=== PATIENT | female | born 1975 | race Caucasian/White ===

== ENCOUNTER → 2020-08-29 | Outpatient (CLI) | payer OTHER ==
[~2020-08-29] MED LIST: IBUPROFEN600 MG PO; NORFLEX 100 MG100 MG PO; Voltaren Gel 1 % TOP
[2020-08-30 11:15] LABS: RHEUMATOID ARTHRITIS FACTOR 11.1 IU/mL (0.0-13.9)
== END ==
LOC: LAB 09:20
PROVIDERS: Internal Medicine
DX: M25.50 Pain in unspecified joint (principal); M35.00 Sjogren syndrome, unspecified; D89.89 Other specified disorders involving the immune mechanism, not elsewhere classified; R76.8 Other specified abnormal immunological findings in serum; M79.671 Pain in right foot; M79.672 Pain in left foot; M79.641 Pain in right hand; M79.642 Pain in left hand
CPT/HCPCS: 36415; 73130; 73630; 83520; 85652; 86140; 86200; 86431

== ENCOUNTER → 2020-11-09 | Outpatient (CLI) | payer OTHER | LOC: EXRD 11:01 | DX: M06.09 Rheumatoid arthritis without rheumatoid factor, multiple sites (principal); M47.816 Spondylosis without myelopathy or radiculopathy, lumbar region | CPT/HCPCS: 72070; 72100 ==

== ENCOUNTER → 2021-02-10 | Outpatient (CLI) | payer OTHER | LOC: EMI 09:42 | DX: M47.26 Other spondylosis with radiculopathy, lumbar region (principal); M48.061 Spinal stenosis, lumbar region without neurogenic claudication | CPT/HCPCS: 72148 ==

== ENCOUNTER 2021-10-15 10:30 | Emergency (ER) | payer OTHER ==
[2021-10-15 11:45] LABS: HEMOGLOBIN 14.8 gm/dl (12.3-15.3); RED BLOOD COUNT 4.21 M/UL (4.00-5.10); WHITE BLOOD COUNT 8.2 K/UL (4.5-11.0)
[2021-10-15 12:07] LABS: BUN/CREATININE RATIO 11 (0-10)
== END 2021-10-15 12:50 | disposition short-term general hospital (02) ==
LOC: ER1 10:30
PROVIDERS: Emergency Medicine
DX: M54.16 Radiculopathy, lumbar region (principal)
CPT/HCPCS: 80053; 85025; 85652; 86140; 96374; 96375; 99284; J1170; J1885; J2405

== ENCOUNTER → 2022-01-04 | Outpatient (CLI) | payer OTHER | LOC: RAD 12:20 | DX: M25.512 Pain in left shoulder (principal); M54.2 Cervicalgia | CPT/HCPCS: 72050; 73030 ==

== ENCOUNTER → 2022-01-15 | Outpatient (CLI) | payer OTHER | LOC: US 10:15 | DX: I65.23 Occlusion and stenosis of bilateral carotid arteries (principal) | CPT/HCPCS: 93880 ==